=== PATIENT | female | born 1970 | race Caucasian/White ===

== ENCOUNTER 2019-03-28 15:02 | Inpatient (IN) ==
[2019-03-28 15:56] LABS: INFLUENZA A NEGATIVE (NEGATIVE); INFLUENZA B NEGATIVE (NEGATIVE)
[2019-03-28] MEDS ORDERED: NORCO-7.5 PO ONE (16:06)
--- NOTE | 2019-03-28 16:11 | PROVIDER DOCUMENTATION ---
HPI-General Adult - General Chief Complaint: Cough Stated Complaint: COUGH / BACK PAIN Time Seen by Provider: 03/28/19 15:48 Source: patient Allergies/Adverse Reactions: Patient Allergies Allergy/AdvReac Type Severity Reaction Status Date / Time methocarbamol [From Robaxin] Allergy Mild NAUSEA/VOMI Verified 12/16/16 14:19 TING Home Medications: Home Medication List Medication Instructions Recorded Confirmed Last Taken Type Albuterol Sulfate Inhaler 2 puff INH Q6H PRN PRN 05/25/16 03/28/19 Unknown History [Ventolin Hfa] Cyclobenzaprine [Flexeril] 10 mg PO TID PRN #10 tablet 05/25/16 03/28/19 Unknown Rx Gabapentin 100 mg PO 3-4XDAY PRN PRN #15 05/25/16 03/28/19 Unknown Rx capsule Mometasone/Formoterol [Dulera 100 2 puff INH BID 05/25/16 03/28/19 05/24/16 20:00 History Mcg/5 Mcg Inhaler] Prednisone 40 mg PO DAILY #10 tablet 05/25/16 03/28/19 Unknown Rx Cyclobenzaprine [Flexeril] 10 mg PO TID #15 tablet 12/16/16 03/28/19 Unknown Rx Naproxen 375 mg PO BID #20 tablet 12/16/16 03/28/19 Unknown Rx - History of Present Illness -Gen Adult Nature of Presenting Problems: 48 yof presents with c/o cough, fever, low back pain and urinary frequency x 1 week. reports she has chronic back pain but cough has exacerbated it. She denies SOB, CP, N/V/D. She is a smoker. Appears in pain but in NAD Location of Pain/Injury: reports: back (lumbar) Pain Radiation: reports: no radiation Quality of Pain: reports: aching Severity: reports: moderate Onset/Duration: reports: 1 week ago Timing: reports: still present Context/Activities at Onset: reports: none Modifying Factors: worse with: coughing Associated Symptoms: reports: back/neck pain, cough Similar Symptoms Previously?: No Review of Systems - Adult - REVIEW OF SYSTEMS - ADULT Constitutional: reports: fever Eyes: reports: no symptoms reported. denies: see HPI, discharge, dry eyes, decreased vision, blurred vision, double vision, eye pain, redness, other Ears, Nose, Mouth & Throat: reports: no symptoms reported. denies: see HPI, ear discharge, ear pain, hearing loss, tinnitus, epistaxis, sinus problem, nose pain, loose teeth, mouth/dental pain, mouth swelling, hoarseness, throat pain, throat swelling, other Cardiovascular: reports: no symptoms reported. denies: see HPI, chest pain, edema, heart murmur, irregular heart rate, orthopnea, palpitations, poor circulation, PND, syncope, other Respiratory: reports: cough Gastrointestinal: reports: no symptoms reported. denies: see HPI, abdominal pain, hematemesis, constipation, diarrhea, difficulty swallowing, frequent heartburn, nausea, poor appetite, rectal bleeding, vomiting, other Genitourinary: reports: frequency. denies: no symptoms reported, see HPI, dysuria, discharge, flank pain, frequent UTI's, hematuria, hesitency, incontinence, urinary retention, urgency, other Musculoskeletal: reports: see HPI, back pain (chronic, reports worse since coughing). denies: no symptoms reported, bone pain, frequent leg cramps, joint pain, joint swelling, muscle aches, muscle weakness, neck pain, other Integumentary: reports: no symptoms reported. denies: see HPI, hives, hair loss, itching, mole changes, nail changes, rash, skin sores/ulcer, skin thickening, other Neurological: reports: no symptoms reported. denies: see HPI, ataxia, dizziness/vertigo, headache/migraines, loss of balance, numbness, paresthesia, seizure, slurred speech, syncope, tremors, other Psychiatric: reports: no symptoms reported. denies: see HPI, anxiety, anti- depressant use, alcohol/drug dependence, depression, emotional problems, insomnia, panic attacks, suicidal thoughts, other Endocrine: reports: no symptoms reported. denies: see HPI, change in skin pigment, excessive sweating, goiter, cold intolerance, heat intolerance, increased hunger, increased thirst, polyuria, other Hematologic/Lymphatic: reports: no symptoms reported. denies: see HPI, blood cl ots, easy bruising, low blood count, lymphedema, prolonged bleeding, swollen lymph nodes, transfusions, other Allergic/Immunologic: reports: no symptoms reported. denies: see HPI, allergic reactions, allergic rhinitis, asthma, eczema, food allergy, frequent infections, hay fever, hives, positive PPD, urticaria, other Past History - Adult - PAST MEDICAL HISTORY-ADULT Review of Records: reports: Nursing Assessment Review, Social history reviewed & non-contributory. Major Childhood Illnesses: reports: denies history. denies: history unknown, Diptheria, Pneumococcal Disease, Polio, Rotavirus, Tetanus, Varicella, Mumps, Rubella, Hepatitis A, Hepatitis B, Hib, Influenza, Measles, Pertussis, other Cardiovascular: reports: denies history. denies: cardiac disease, A-Fib, angina, aortic disease, arrhythmia, blood clots, CAD, congenital heart disease, CHF, HTN, heart valve problem, hyperlipidemia, murmur, IN, PAD, palpitations, pacemaker, pericardial disease, PVD, other Respiratory: reports: asthma. denies: denies history, bronchitis, COPD, cancer, cystic fibrosis, lung disease, pneumonia, sleep apnea, tuberculosis, other Gastrointestinal: reports: denies history. denies: cholelithiasis, cancer, Crohn's, colitis, diverticulosis, GERD, GI bleed, hepatitis, hemorrhoids, inflammatory bowel disease, IBS, liver disease, obstruction, pancreatitis, polyps, ulcer, other Obstetrical/Gynecological: reports: denies history. denies: - spont/elective, ectopic , endometriosis, fibroids, ovarian cysts, PID/STD, uterine/ovarian cancer, other Genitourinary: reports: denies history. denies: cancer, dialysis, ESRD, incontinence, kidney disease, kidney stones, polycystic kidney disease, retention, stenosis/obstruction, chronic UTI's, erectile dysfunction, epididymitis, prostatitis, prostate cancer, STD (male), testicular injury, other Musculoskeletal: reports: chronic pain (back pain). denies: denies history, arthritis, cancer, fibromyalgia, intervertebral disc disease, neck/back injury, other fractures, orthopedic injury, osteoporosis, spinal fracture, other Neurological: reports: denies history. denies: Alzheimer's, cancer/tumor, cognitive dysfunction, CVA, stroke deficits, degenerative disease, dementia, Betty's Disease, headaches/migraines, Muscular Dystrophy, meningitis, Multiple Sclerosis, Parkinson's, past injury, Seizures/Epilepsy, speech difficulty, spinal cord/brain injury, TIA, other Psychiatric: reports: anxiety, psychiatric problems. denies: denies history, bipolar, depression, ptsd, suicide attempt, schizophrenia, other Endocrine/Immune: reports: denies history. denies: adrenal insufficiency, adrenal excess, anemia, bleeding disorder, cancer, Diabetes, Hemophilia, HIV/A IDS, hypoglycemia, immunosuppression, Leukemia, lupus, Lymphoma, Myeloma, pituitary disorder, RA, Sickle Cell disease, thyroid disorder, other Other Conditions: reports: denies history - PRIOR SURGERIES/PROCEDURES Surgical/Procedure History: reports: , tonsillectomy - PRIOR HOSPITALIZATIONS Prior Hospitalizations: reports: none - IMMUNIZATION STATUS Childhood Immunizations: See Nurse Assessment Flu Vaccine: See Nurse Assessment - FAMILY HISTORY Family History: reviewed, not pertinent Physical Exam-General - PHYSICAL EXAM-ADULT Initial Vital Signs Reviewed: Yes - CONSTITUTIONAL General Appearance: alert, no apparent distress. negative: appears well (appears in pain) - EYES Eyes: PERRL/EOMI, pink conjunctivae - HEAD, EARS, NOSE, MOUTH & THROAT HENMT: normocephalic/atraumatic, moist mucous membranes, normal ENT inspection - NECK Neck: non-tender, full range of motion, supple - RESPIRATORY Respiratory: chest non-tender, lungs clear, normal breath sounds, no pleuratic chest pain, no respiratory distress - CARDIOVASCULAR Cardiovascular: normal peripheral pulses, regular rate, rhythm, no edema - GASTROINTESTINAL (ABDOMEN) Abdominal Exam: normal bowel sounds, non tender, soft - LYMPHATIC Lymphatic: no adenopathy - MUSCULOSKELETAL Back Exam: normal inspection, no CVA tenderness, other (paraspinal muscle tenderness) Extremity: normal range of motion, non-tender, no pedal edema. negative: normal gait (in wc to [facility] for exam) Peripheral Pulses: radial (R): 2+, radial (L): 2+ - SKIN Integumentary: normal color, normal turgor, warm/dry - NEUROLOGIC Neurologic: grossly normal - PSYCHIATRIC Psych/Mental Status: normal thought content, oriented x 3 Progress - PLAN OF CARE/RESULTS Progress/Plan/Lab Results: Vital Signs - 8 hr 03/28/19 15:13 Pulse Rate 84 Respiratory Rate 18 Blood Pressure 100/56 O2 Sat by Pulse Oximetry 95 Laboratory Results - last 24 hr 03/28/19 15:32 Influenza A (Rapid) NEGATIVE Influenza B (Rapid) NEGATIVE Orders Category Date Time Status cxr [CHEST-2 VIEWS] [RAD] Stat Exams 03/28/19 15:[address] Stat Lab 03/28/19 15:32 Completed UA NIMS W/REFLEX CULT [URINALYSIS] Stat Lab 03/28/19 16:06 Uncollected URINE DRUG SCREEN PL Stat Lab 03/28/19 16:06 Uncollected Hydrocodone/APAP 7.5 mg/325 mg [[place]-7.5] Med 03/28/19 16:06 Once 1 each PO NOW ONE Result Diagrams: 03/28/19 19:11 03/28/19 19:11 - CONSULTS/PCP/HOSPITALIST Notification #1 *Consult/PCP/Hospitalist*: DR CHERY Time Discussed: 20:20 Consult Disposition: Admit Departure - Departure Date of Disposition Decision: 03/28/19 Time of Disposition Decision: 20:16 DIAGNOSIS: Pneumonia, UTI (urinary tract infection), Sepsis Disposition: ADMITTED INPATIENT 09 Certified Medical Emergency: Emergent Condition: Fair Referrals and Follow-Ups: None,PCP [Primary Care Provider] - - Critical Care Note This patient required my direct & personal management of CC.: No Attestation - Physician/ TERESA Attestation Patient care was provided by Advanced Practice Provider:: Yes Advanced Practice Provider:: Cathy Hernandez Advanced Practice Provider documentation review:: The Mid-level provider documentation, treatment plan and medical decision making was reviewed by the physician who agrees with all treatment and medical decision making by the P. The physician spent face to face time with patient:: No Advanced Practice Provider documentation review:: Supervising physician onsite and consulted in the evaluation and care of this patient. The physician did not have a face to face encounter with the patient.
--- NOTE | 2019-03-28 17:04 | Diag Imaging Result Doc PS360 ---
EXAM: CHEST-2 VIEWS - 03/28/2019 HISTORY: cough TECHNIQUE: Chest two views COMPARISON: 08/11/2011 FINDINGS: Heart size is normal. There is substantial consolidation at the left lingula and at the inferior left lower lobe, consistent with pneumonia. The right lung appears clear. There is a possible tiny left pleural effusion. There is no evidence of pneumothorax. IMPRESSION: Pneumonia at left lingula and left lower lobe. Electronically signed by Cristino Strickland 03/28/2019 5:02 PM
[2019-03-28] MEDS ORDERED: XYLOCAINE-MPF 1% INJ ONE (17:34)
[2019-03-28] MEDS ORDERED: ROCEPHIN IM ONE (17:34)
[2019-03-28 18:47] LABS: URINE SOURCE CLEAN CATCH
[2019-03-28 18:49] LABS: BILIRUBIN URINE NEGATIVE (NEGATIVE); BLOOD URINE TRACE (NEGATIVE); COLOR YELLOW; GLUCOSE URINE NEGATIVE (NEGATIVE); KETONE URINE TRACE mg/dL (NEGATIVE); LEUKOCYTES URINE SMALL (NEGATIVE); NITRITE URINE POSITIVE (NEGATIVE); PROTEIN URINE 50 mg/dL (NEGATIVE); TURBIDITY URINE HAZY (CLEAR); UROBILINOGEN URINE 2 mg/dL (NORMAL)
[2019-03-28 18:51] LABS: UR EPITHELIAL CELLS <10 /HPF (<10); URINE BACTERIA 4+ /HPF; URINE RBC <10 /HPF (<10); URINE WBC 20-40 /HPF (<10)
[2019-03-28 19:00] LABS: UR AMPHETAMINES QUAL PRESUMPTIVE POSITIVE (NONE DETECT); UR BARBITUATES QUAL NONE DETECTED (NONE DETECT); UR BENZODIAZEPIN QUAL NONE DETECTED (NONE DETECT); UR CANNABINOIDS QUAL NONE DETECTED (NONE DETECT); UR COCAINE QUAL NONE DETECTED (NONE DETECT); UR METHADONE QUAL NONE DETECTED (NONE DETECT); UR METHAMPHETAMINE QUAL PRESUMPTIVE POSITIVE (NONE DETECT); UR OPIATES QUAL NONE DETECTED (NONE DETECT); UR OXYCODONE QUAL NONE DETECTED (NONE DETECT); UR PCP QUAL NONE DETECTED (NONE DETECT); UR PROPOXYPHENE QUAL NONE DETECTED (NONE DETECT); UR TCA QUAL NONE DETECTED (NONE DETECT)
[2019-03-28 19:31] LABS: BASO# 0.05 X1000 (0.0-0.2); BASO% 0.3 % (0.0-0.8); EOS# 0.06 X1000 (0.0-0.7); EOS% 0.4 % (0.0-10.0); HEMATOCRIT 31.5 % (37.0-47.0); HEMOGLOBIN 10.1 g/dL (12.0-16.0); IMM GRAN# 0.14 X1000 (0.0-0.04); IMM GRAN% 0.8 % (0.0-0.5); LYMPH# 0.99 X1000 (1.2-3.4); LYMPH% 5.9 % (20.5-51.1); MCH 30.1 PG (27-31); MCHC 32.1 g/dL (33-37); MONO# 1.33 X1000 (0.11-0.59); MONO% 7.9 % (1.7-9.3); MPV 8.2 FL (7.4-10.4); NEUT# 14.21 X1000 (1.4-6.5); NEUT% 84.7 % (42.2-75.2); PLT 747 X1000 (130-400); RBC 3.35 XMIL (4.2-5.4); RDW 12.3 % (11.5-14.5); WBC 16.78 X1000 (4.8-10.8)
[2019-03-28] MEDS ORDERED: LEVAQUIN 750 MG/D5W 750 MG/150 ML IVPB IV ONE (19:37)
[2019-03-28] MEDS ORDERED: NS 1,000 ML IV ONE ×4 (19:43→23:37)
[2019-03-28 19:52] LABS: AGAP 10; ALBUMIN 2.9 g/dL (3.5-5.0); ALKALINE PHOSPHATASE 103 U/L (32-104); BUN 7 mg/dL (8-22); CALCIUM 8.6 mg/dL (8.8-10.2); CHLORIDE 97 mmol/L (98-107); COSMO 263; CREATININE 0.6 mg/dL (0.5-0.9); ESTIMATED GFR > 60; GLUCOSE 105 mg/dL (70-104); GOT 18 U/L (10-30); GPT 25 U/L (10-36); POTASSIUM 4.2 mmol/L (3.5-5.1); SODIUM 132 mmol/L (136-145); TCO2 25 mmol/L (25-35); TOTAL PROTEIN 7.3 g/dL (6.3-8.3)
[2019-03-28 19:58] LABS: BLOOD TYPE ARTERIAL; HCO3-(ACT) 26.5 mmoll (20.0-26.0); METHB 1.3 % (0.0-1.5); O2(CT) 14.1 mL/dL (15.0-23.0); PCO2(98.6) 31 mmHg (35-45); PO2(98.6) 78 mmHg (60-100); SAMPLE BLOOD; SAO2 98.4 % (95.0-100.0); THB 10.5 g/dL (11.5-17.4); pH(98.6) 7.51 (7.35-7.45)
[2019-03-28 20:00] LABS: ALLEN TEST NO; MODALITY ROOM AIR
[2019-03-28 20:07] LABS: INR 1.05; PROTIME 14.2 Seconds (11.0-16.0)
[2019-03-28] MEDS ORDERED: TYLENOL PO PRN (20:20)
[2019-03-28] MEDS ORDERED: NORCO-5 PO PRN (20:24)
--- NOTE | 2019-03-28 20:24 | Diag Imaging Result Doc PS360 ---
EXAM: CHEST-1 VIEW HISTORY: SEPSIS PROT TECHNIQUE: Single view COMPARISON: 4:58 PM FINDINGS: No interval change. IMPRESSION: Left lingular and lower lobe pneumonia. Electronically signed by Sami Chris 03/28/2019 8:22 PM
[2019-03-28] MEDS ORDERED: LEVOPHED 8 MG in D5 1/2 NS 250 ML IV SCH (23:45)
[2019-03-29] MEDS ORDERED: NICODERM PATCH TD PRN (06:34)
[2019-03-29] MEDS ORDERED: TYLENOL PO PRN (06:34)
[2019-03-29] MEDS ORDERED: ZOFRAN IV PRN (06:34)
[2019-03-29] MEDS: NS 1,000 ML IV SCH ×2 (07:12→18:04)
[2019-03-29] MEDS: NORCO-5 PO PRN ×2 (07:18→18:24)
[2019-03-29 07:29] LABS: BASO# 0.04 X1000 (0.0-0.2); BASO% 0.3 % (0.0-0.8); EOS# 0.07 X1000 (0.0-0.7); EOS% 0.5 % (0.0-10.0); HEMATOCRIT 29.1 % (37.0-47.0); HEMOGLOBIN 9.2 g/dL (12.0-16.0); IMM GRAN# 0.13 X1000 (0.0-0.04); IMM GRAN% 0.9 % (0.0-0.5); LYMPH# 1.15 X1000 (1.2-3.4); LYMPH% 7.9 % (20.5-51.1); MCH 30.2 PG (27-31); MCHC 31.6 g/dL (33-37); MCV 95.4 FL (81-99); MONO# 1.26 X1000 (0.11-0.59); MONO% 8.6 % (1.7-9.3); MPV 8.3 FL (7.4-10.4); NEUT# 11.99 X1000 (1.4-6.5); NEUT% 81.8 % (42.2-75.2); PLT 684 X1000 (130-400); RBC 3.05 XMIL (4.2-5.4); RDW 12.5 % (11.5-14.5); WBC 14.64 X1000 (4.8-10.8)
--- NOTE | 2019-03-29 07:59 | HISTORY AND PHYSICAL ---
PRIMARY CARE PROVIDER: The patient does not have a primary care provider. DATE AND TIME: 03/29/2019 at 0500. CHIEF COMPLAINT: Cough. HISTORY OF PRESENT ILLNESS: Ms. Ware is a 48-year-old female, who reports that for a period of 2 weeks now that she has had progressively worsening symptoms of sinus congestion, drainage, productive cough with greenish yellow sputum, fever, body aches and chills, as well as a headache. She denies being around anyone with influenza. They do report that her granddaughter did have pneumonia, and she had been around her. She denies any recent travel or recently traveling out of the country. She also denies any recent diagnosis of pneumonia in the last 3 to 4 months, or being admitted to the hospital within the last 3 to 4 months either. The patient does have some chronic low back pain and states that her low back pain has been worse. The patient states that approximately 2 days ago she did have a coughing spell and, with this coughing spell, her lower back pain did increase. She also reports that at the time she did have a knot/area of swelling that came up on her left lower back. She reports the area is tender to touch. She denies any pain, numbness, tingling or swelling in extremities. She denies any loss of bladder or bowel control. She does have a history of having some reported bulging disk in her lower back and in her cervical area. The patient also has reported urinary frequency and some dysuria as well, though she has no CVA tenderness upon palpation. The patient denies any recent history of a urinary tract infection or taking any recent antibiotics for anything either. She denies any dizziness, chest pain, shortness of breath. The patient states it only hurts her to take a deep breath due to her back pain that she is having. She denies any abdominal pain, any nausea, vomiting or diarrhea. She reports her last bowel movement was a few days ago. She denies any hematochezia or melena. She denies any pain, numbness, tingling or swelling in extremities. Upon evaluation in the ER, she was noted to have some leukocytosis with a white blood cell count of 16,000. She was also noted to be borderline hypotensive with a blood pressure at one point that got as low as 80 systolically, though she did maintain adequate mean arterial pressures. She did receive a total of 2 L normal saline bolus. Since that time, her blood pressures have improved with last reading of 99/57 with a MAP of 70. She is 96% on room air. She was also noted to have nitrite-positive urinary tract infection, and a chest x-ray did show pneumonia at the left lingula and left lower lobe. She was started on antibiotic of Levaquin IV. Blood cultures and urine culture were obtained. She has been transferred to [facility] and was placed in the ICU just given that she did have some mild hypotension. 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 REVIEW OF SYSTEMS: A 14 point review of systems was conducted with the patient. All were negative, except for pertinent positives mentioned in the HPI. PAST MEDICAL HISTORY: 1. Asthma. 2. Reported history of atrial fibrillation, although the patient states she is not taking any medicines for this. 3. Chronic low back pain and neck pain. 4. Migraines. 5. Anemia. 6. Nicotine dependence. PAST SURGICAL HISTORY: 1. x2. 2. Tubal ligation. 3. Tonsillectomy. 4. Reported four back injections for her chronic low back pain. SOCIAL HISTORY: The patient states she is not working at this time. Her was present at bedside during our examination. She is a current every-day smoker and smokes approximately half pack of cigarettes per day and has done so for greater than 30 years. She denies any illicit drug use. Does report occasional alcohol use. FAMILY HISTORY: Positive for a mother having heart disease and COPD. Her father had a history of lung cancer. He was a smoker as well. Her brother has a history of diabetes mellitus. ALLERGIES: Patient reports allergies to Robaxin. HOME MEDICATIONS: Ventolin HFA inhaler 2 puffs inhaled q. 6 hours p.r.n. for wheezing and shortness of breath. DIAGNOSTIC DATA/LABORATORY RESULTS: White blood cell count is 16,780, hemoglobin 10.1, hematocrit 31.5, platelet count is 747. PT is 14.2, INR 1.05, PTT is 42. Sodium 132, potassium 4.2, chloride 97, serum bicarbonate is 25. BUN 7, creatinine 0.6 with a GFR greater than 60. Glucose 105, calcium 8.6, magnesium 1.8. Liver function tests within normal limits. CK 26, troponin less than 0.01. Initial plasma lactate was 0.8 with a repeat of 0.7. Arterial blood gases were obtained on room air with a pH 7.51, pCO2 31, PO2 of 78, HC03 of 26.5 with a base excess of 2, O2 saturation is 98.4. Influenza screen was negative. Urinalysis was obtained via clean catch, was positive for protein, trace ketones, trace blood, nitrite positive, small leukocytes, 20 to 40 white blood cells and 4+ bacteria. Urine drug screen was positive for amphetamines and methamphetamine. Chest x-ray showed a left lingular and lower lobe pneumonia. Pending diagnostic studies at this time are blood culture, sputum culture, urine culture, as well as a lumbar spine CT noncontrast. PHYSICAL EXAMINATION: VITAL SIGNS: Temperature 99.3 degrees, heart rate 83, respirations 25, blood pressure is 99/57 with a MAP of 70, oxygen saturation is 96% on room air. GENERAL: Ms. Ware is a pleasant 48-year-old female. She was resting in the inpatient bed. She was in no acute distress. She was alert and oriented to person, place, time and situation. She is able to answer questions appropriately and follow commands. HEENT: Head is atraumatic, normocephalic. Pupils are equal, round, reactive to light, were 3 mm bilaterally and brisk. Oral mucosa was moist. Oropharynx was clear. NECK: Supple. Trachea midline. CARDIOVASCULAR: Patient has S1, S2 present. No murmurs, gallops, rubs appreciated with a regular rate and rhythm. PULMONARY: Patient has symmetrical chest expansion bilaterally. Lung sounds in bilateral barrios did have some slight rhonchi noted, though she was diminished in bilateral lower lung barrios. She also was a little tachypneic upon examination, though was not in any respiratory distress. She was able to talk in full sentences. ABDOMEN: Soft, nontender, nondistended. Bowel sounds are present, and all 4 quadrants were normoactive. EXTREMITIES: No cyanosis or edema noted. Pulse, motor, and sensory were intact in all extremities. Radial and pedal pulses were 2+ bilaterally. MUSCULOSKELETAL: Upon palpation of the patient's back, she did not have any CVA tenderness noted, though she did have an approximately tennis ball-size hematoma noted to her left lower back just left of the spine/midline. There was no ecchymosis noted to this area. It was slightly the firm upon palpation. The patient reported tenderness and pain with palpation of this area. INTEGUMENTARY: The patient's skin is pink, warm, and dry. NEUROLOGICAL: Patient is alert and oriented to person, place, time and situation. She does move all extremities. There were no focal neurological deficits noted. ASSESSMENT AND PLAN: 1. Community-acquired left lingular and lower lobe pneumonia. Blood culture and sputum culture have been obtained. We have placed the patient with antibiotic coverage of Levaquin 750 mg intravenous every 24 hours. We will implement aggressive pulmonary toilet with incentive spirometry, schedule DuoNeb treatments and frequent encouragement of turn, cough and deep breathing. We have also ordered her something as needed for cough and Mucinex as well. We will monitor her respiratory status closely. 2. Urinary tract infection. We will continue with Levaquin as mentioned above. We have placed orders for urine culture. We will await those results and continue to follow. 3. Nicotine dependence. We did health counselor the patient for several minutes on the importance of smoking cessation. We will continue to do this throughout her admission and upon discharge. We have placed orders for nicotine patch as needed. 4. Low back pain. The patient does have a history of reported bulging disks in her cervical spine and lower back, I believe lumbar spine. She does have chronic low back pain, though reports 2 days ago after a coughing spell she did have worsening pain in her lower back. She does have a hematoma that appeared at this time as well that is painful and tender to touch that is in her left lower back just left of midline. She is not experiencing any neurological deficits at this time. We have placed orders for CT lumbar spine without contrast. We will await those results and continue to follow. 5. Mild hypotension. I believe this may have been secondary to some possible mild fluid volume depletion. Since receiving 2 liters normal saline bolus in the emergency room, her blood pressures have improved. She is maintaining adequate mean arterial pressures. The lowest blood pressure she had documented was 80 systolic, though the mean arterial pressures were in the 80s and 90s during this time. She has not been tachycardic since arrival. 6. Deep vein thrombosis prophylaxis provided with sequential compression devices. The patient has been placed in the ICU for close monitoring given that she was mildly hypotensive. If her blood pressures maintain adequate throughout the morning and early afternoon, she will likely be able to be triaged at the ICU. We will repeat a CBC, CMP this morning. She will be on a regular diet. We will do strict intake and output. Further orders and recommendations pending hospital course, diagnostic studies, and physician evaluation. Dictated by KATIA Lewis for Andrea Phoenix MD cc: Andrea Phoenix MD [facility]
[2019-03-29 08:01] LABS: AGAP 10; ALB/GLOB RATIO 0.6; ALBUMIN 2.4 g/dL (3.5-5.0); ALKALINE PHOSPHATASE 91 U/L (32-104); BUN 5 mg/dL (8-22); CHLORIDE 101 mmol/L (98-107); COSMO 265; CREATININE 0.7 mg/dL (0.5-0.9); ESTIMATED GFR > 60; GLUCOSE 95 mg/dL (70-104); GOT 15 U/L (10-30); GPT 20 U/L (10-36); POTASSIUM 3.7 mmol/L (3.5-5.1); SODIUM 134 mmol/L (136-145); TCO2 23 mmol/L (25-35); TOTAL BILIRUBIN 0.16 mg/dL (0.20-1.00); TOTAL PROTEIN 6.3 g/dL (6.3-8.3)
[2019-03-29] MEDS: PYRIDIUM PO SCH ×3 (08:11→18:03)
[2019-03-29] MEDS: MUCINEX PO SCH ×2 (08:11→21:14)
--- NOTE | 2019-03-29 08:48 | Diag Imaging Result Doc PS360 ---
CT LUMBAR SPINE W/O CONTRAST - 03/29/2019 INDICATION: L lower back pain hematoma just left of midline COMPARISON: None FINDINGS: Alignment is straightened. Vertebral body heights are preserved. There is moderate multilevel degenerative disc disease diffusely with mild narrowing and some osteophytes. No fracture or subluxation. There is a small 2 mm nonobstructing left renal stone. Otherwise soft tissues are clear. At L3-L4 there is a disc bulge and moderate facet hypertrophy. There is mild central canal stenosis. At L4-L5 there is disc bulge. There is significant facet and ligament flavum hypertrophy. There is moderate central canal stenosis. IMPRESSION: 1. Lumbar spondylosis. 2. Tiny nonobstructing left renal stone. This exam was performed using automated exposure control, adjustment of mA or kV according to patient size, and/or use of iterative reconstruction technique Electronically signed by Adelso Herr 03/29/2019 8:46 AM
[2019-03-29 09:02] LABS: ANISOCYTOSIS 1+; EOS 1 % (1-10); LYMPHS 8 % (21-51); MONO 9 % (1-9); SEGS 81 % (42-75)
[2019-03-29 09:03] LABS: HYPOCHROM 1+
[2019-03-29] MEDS: DUONEB (A & A) INH SCH ×4 (10:11→21:04)
--- NOTE | 2019-03-29 13:19 | PROGRESS NOTE ---
DATE: 03/29/2019 SUBJECTIVE: This patient is still lying comfortably in bed. She is complaining of left thoracic pain close to the lower side of the chest, she does have some rhonchi in that area. X-ray showed pneumonia. The patient has been transferred from [facility] due to low blood pressure and actually this patient is septic. I will continue keeping an eye in ICU for a little bit, but probably in the afternoon or during the night, she can be transferred to the floor. She is still on IV fluids. I will stop the levofloxacin and I will put this patient on Zosyn. OBJECTIVE: Vital Signs: The most recent temperature is 99.0 degrees, pulse 74, respiratory rate 124. Blood pressure on the monitor right now 102/64, oxygen saturation 97% on room air. HEENT: Head normocephalic, no trauma. PERRLA. Neck: Supple. No JVD. No masses. Central trachea. Chest: Clear to auscultation. Some rhonchi at the level of the left lower side of the thoracic area, some tenderness to palpation in that area as well. Abdomen: Soft, nontender, nondistended. No hepatosplenomegaly. Extremities: No edema, no clubbing, no cyanosis. Neurological: The patient is awake, alert, and oriented x3. No focal deficits. LABORATORY DATA: WBC is 14.6, hemoglobin 9.2, hematocrit 29.1, platelets 684,000. Sodium 134, potassium 3.7, chloride 101, bicarbonate 23, BUN 5, creatinine 0.7, glucose 95, calcium 8, albumin 2.4. ASSESSMENT AND PLAN: 1. Sepsis due to left lower lobe and left lingular pneumonia. She has also bacteriuria, but she denies any urinary tract infection. Anyway, this patient will be on antibiotics, continue with IV fluids, breathing treatment. 2. Pneumonia at the level of the left lingula and left lower lobe, aware. I have stop the levofloxacin and I put this patient on Zosyn. White blood cell count trending down. We will continue with same treatment. 3. Bacteriuria, as per the patient, asymptomatic. She is getting antibiotics anyway. 4. Positive urine toxicology that showed amphetamines and methamphetamines, aware. This will be discussed with the patient in detail and daily cessation education will be provided once she is feeling better. 5. Normocytic anemia. We will monitor for now. Seems to be stable. 6. Hyponatremia, stable. 7. Low back pain. We did a lumbar spine CT scan that showed lumbar spondylosis and tiny nonobstructing left renal stone, there is a bulge and moderate facet hypertrophy with mild central canal stenosis at the level of the L3-L4, but at the level of the L4-L5, there is a disk bulge but significant facet ligament flavum hypertrophy, there is moderate central canal stenosis, but the patient is basically moving her lower extremities and sensation is intact. Likely she will need to follow up with spine surgery upon discharge. 8. Hypotension, likely due to #1. Continue with IV fluids. 9. Deep vein thrombosis prophylaxis with sequential compression devices. 10. Tobacco abuse. This patient has been highly advised against tobacco use. I will continue with daily cessation education. cc: Joseluis Menard MD
[2019-03-29] MEDS: ZOSYN 3.375 GM in NS 50 ML IV SCH ×2 (13:20→18:03)
[2019-03-29] MEDS: TESSALON PO PRN (18:20)
[2019-03-29] MEDS ORDERED: LEVAQUIN 750 MG/D5W 750 MG/150 ML IVPB IV SCH (20:00)
[2019-03-29] MEDS ORDERED: LEVAQUIN 500 MG/D5W 500 MG/100 ML IVPB IV SCH (20:00)
[2019-03-30] MEDS: ZOSYN 3.375 GM in NS 50 ML IV SCH ×4 (00:52→18:07)
[2019-03-30] MEDS: DUONEB (A & A) INH SCH ×4 (03:39→21:13)
[2019-03-30] MEDS: NORCO-5 PO PRN ×3 (04:36→21:02)
[2019-03-30] MEDS: TESSALON PO PRN ×2 (04:36→21:02)
[2019-03-30] MEDS ORDERED: ATIVAN IV PRN (07:39)
[2019-03-30 07:52] LABS: BASO# 0.03 X1000 (0.0-0.2); BASO% 0.2 % (0.0-0.8); EOS# 0.03 X1000 (0.0-0.7); EOS% 0.2 % (0.0-10.0); HEMATOCRIT 26.7 % (37.0-47.0); HEMOGLOBIN 8.4 g/dL (12.0-16.0); IMM GRAN# 0.09 X1000 (0.0-0.04); IMM GRAN% 0.7 % (0.0-0.5); LYMPH# 0.94 X1000 (1.2-3.4); LYMPH% 7.1 % (20.5-51.1); MCH 29.9 PG (27-31); MCHC 31.5 g/dL (33-37); MONO# 0.68 X1000 (0.11-0.59); MONO% 5.1 % (1.7-9.3); NEUT# 11.48 X1000 (1.4-6.5); NEUT% 86.7 % (42.2-75.2); PLT 649 X1000 (130-400); RBC 2.81 XMIL (4.2-5.4); RDW 12.5 % (11.5-14.5); WBC 13.25 X1000 (4.8-10.8)
[2019-03-30] MEDS: MUCINEX PO SCH ×2 (08:13→21:02)
[2019-03-30] MEDS: PYRIDIUM PO SCH ×3 (08:13→16:55)
--- NOTE | 2019-03-30 08:13 | PROGRESS NOTE ---
DATE: 03/30/2019 SUBJECTIVE: This patient seems to be doing better. She is still complaining of some shortness of breath and left thoracic pain and back pain, she just received some pain medication and she is feeling sleepy, but the patient is stable to be transferred to the floor. OBJECTIVE: Vital Signs: Temperature 98.6 degrees, pulse 86, respiratory rate 22, blood pressure 115/60, oxygen saturation 98 on room air. HEENT: Head normocephalic, no trauma. PERRLA. Neck: Supple. No JVD. No masses. Central trachea. Chest: Clear to auscultation. Some rhonchi at the level of the left lower thoracic area, some tenderness to palpation in that area as well. Abdomen: Soft, slightly distended but positive bowel sounds. Extremities: No edema, no clubbing, no cyanosis. Neurologic: Patient is sleepy but arousable. She is oriented x3. She is following commands. No focal deficits. LABORATORY: Pending lab work at this moment. We will check it later. ASSESSMENT AND PLAN: 1. Sepsis due to left lower lobe and left lingular pneumonia, she also has bacteriuria but she denies any urinary symptoms. We will continue with Zosyn, IV fluids and breathing treatment. 2. Pneumonia at the level of the left lingula and left lower lobe, aware. I will continue with Zosyn, we will continue with the same management for now pending lab work. 3. Bacteriuria, asymptomatic. 4. Positive urine toxicology that showed amphetamine and methamphetamine, aware. This patient has been advised against drug use. I will continue with daily cessation education. 5. Normocytic anemia. We will monitor for now. She seems to be stable. 6. Hyponatremia, pending lab work. 7. Low back pain, seems to be chronic. We did a CT-spine of the lumbar area that showed lumbar spondylosis with tiny nonobstructing left renal stone, there is a bulge and moderate facet hypertrophy with mild central canal stenosis at the level of the L3-L4, but at the level of the L4-L5, there is a disk bulge but significant facet ligament flavum hypertrophy. There is moderate central canal stenosis, but the patient is basically moving her lower extremities and the sensation is intact, no neurological deficit. She will need to follow up with a spine surgeon upon discharge. 8. Hypotension, likely due to #1. Continue with IV fluids. She seems to be stable. 9. Deep vein thrombosis prophylaxis with sequential compression devices. 10. Gastrointestinal prophylaxis. Continue with the same management. 11. Tobacco abuse. This patient has been highly advised against tobacco use. I will continue with daily cessation education. cc: Joseluis Menard MD
[2019-03-30] MEDS: NS 1,000 ML IV SCH ×2 (08:14→22:10)
[2019-03-30 08:20] LABS: AGAP 10; ALB/GLOB RATIO 0.5; ALBUMIN 2.1 g/dL (3.5-5.0); ALKALINE PHOSPHATASE 83 U/L (32-104); BUN 6 mg/dL (8-22); CHLORIDE 105 mmol/L (98-107); COSMO 275; CREATININE 0.7 mg/dL (0.5-0.9); ESTIMATED GFR > 60; GLUCOSE 102 mg/dL (70-104); GOT 15 U/L (10-30); GPT 19 U/L (10-36); POTASSIUM 4.1 mmol/L (3.5-5.1); SODIUM 139 mmol/L (136-145); TCO2 24 mmol/L (25-35); TOTAL BILIRUBIN 0.19 mg/dL (0.20-1.00); TOTAL PROTEIN 6.2 g/dL (6.3-8.3)
[2019-03-31] MEDS: ZOSYN 3.375 GM in NS 50 ML IV SCH ×4 (01:21→18:34)
[2019-03-31] MEDS: NORCO-5 PO PRN ×3 (03:07→18:33)
[2019-03-31] MEDS: TESSALON PO PRN (03:08)
[2019-03-31] MEDS: DUONEB (A & A) INH SCH ×4 (03:38→21:55)
[2019-03-31 06:21] LABS: AGAP 11; ALB/GLOB RATIO 0.6; ALBUMIN 2.4 g/dL (3.5-5.0); ALKALINE PHOSPHATASE 85 U/L (32-104); BUN 6 mg/dL (8-22); CALCIUM 8.5 mg/dL (8.8-10.2); CHLORIDE 103 mmol/L (98-107); COSMO 274; CREATININE 0.7 mg/dL (0.5-0.9); ESTIMATED GFR > 60; GLUCOSE 103 mg/dL (70-104); GOT 29 U/L (10-30); GPT 32 U/L (10-36); MAGNESIUM 2.1 mg/dL (1.5-2.7); PHOSPHORUS 3.3 mg/dL (2.7-4.5); POTASSIUM 4.2 mmol/L (3.5-5.1); SODIUM 138 mmol/L (136-145); TCO2 24 mmol/L (25-35); TOTAL BILIRUBIN < 0.15 mg/dL (0.20-1.00); TOTAL PROTEIN 6.7 g/dL (6.3-8.3)
[2019-03-31 06:43] LABS: BASO# 0.03 X1000 (0.0-0.2); BASO% 0.2 % (0.0-0.8); EOS# 0.08 X1000 (0.0-0.7); EOS% 0.6 % (0.0-10.0); HEMATOCRIT 27.5 % (37.0-47.0); HEMOGLOBIN 8.7 g/dL (12.0-16.0); IMM GRAN# 0.07 X1000 (0.0-0.04); IMM GRAN% 0.6 % (0.0-0.5); LYMPH# 1.03 X1000 (1.2-3.4); LYMPH% 8.3 % (20.5-51.1); MCHC 31.6 g/dL (33-37); MCV 94.8 FL (81-99); MONO# 0.67 X1000 (0.11-0.59); MONO% 5.4 % (1.7-9.3); MPV 7.7 FL (7.4-10.4); NEUT# 10.49 X1000 (1.4-6.5); NEUT% 84.9 % (42.2-75.2); PLT 747 X1000 (130-400); RDW 12.6 % (11.5-14.5); WBC 12.37 X1000 (4.8-10.8)
--- NOTE | 2019-03-31 07:35 | Diag Imaging Result Doc PS360 ---
CHEST-PORTABLE - 03/31/2019 INDICATION: dyspnea COMPARISON: 03/28/2019 FINDINGS: Stable dense infiltrate in the left lung base. No new infiltrates. Heart size is normal. IMPRESSION: No change from prior. Electronically signed by Adelso Herr 03/31/2019 7:32 AM
[2019-03-31] MEDS: MUCINEX PO SCH ×2 (08:18→20:20)
[2019-03-31] MEDS: NS 1,000 ML IV SCH (11:40)
--- NOTE | 2019-03-31 15:51 | PROGRESS NOTE ---
DATE: 03/31/2019 SUBJECTIVE: Patient resting comfortably. Not in any obvious distress. OBJECTIVE: Vital signs: Temperature 98.5 degrees, pulse 74, respirations 19. Blood pressure is 110/61. Oxygen saturation 98%. HEENT: Atraumatic, normocephalic. Cardiovascular: S1, S2. Respiratory system: Has evidence of good air entry bilaterally. Abdomen: Soft, nontender. No masses felt. Extremities: No evidence of edema. Central nervous system: No obvious focal deficit noted. LABS: WBC is 12.37, hematocrit 27.5 with a platelet count of 747. Sodium is 138, potassium 4.2, chloride is 103, bicarb 24, BUN is 6, creatinine 0.7. Urine culture positive for Escherichia coli. ASSESSMENT AND PLAN: 1. Sepsis secondary to pneumonia/urinary tract infection. Continue antibiotics. 2. Polysubstance abuse. Aware. 3. Anemia. Follow up on hemoglobin and hematocrit. Transfuse packed red blood cells as needed. 4. Low back pain. Optimize pain control. 5. Deep vein thrombosis prophylaxis. Sequential compression devices. 6. Gastrointestinal prophylaxis. Proton pump inhibitor. 7. Tobacco use history. Recommend nicotine patch. cc: Andrea Phoenix MD
[2019-04-01] MEDS: NS 1,000 ML IV SCH ×2 (00:15→13:36)
[2019-04-01] MEDS: ZOSYN 3.375 GM in NS 50 ML IV SCH ×3 (00:15→13:36)
[2019-04-01] MEDS: DUONEB (A & A) INH SCH ×3 (02:45→16:57)
[2019-04-01] MEDS: NORCO-5 PO PRN ×2 (06:21→15:25)
[2019-04-01] MEDS ORDERED: PRILOSEC PO SCH (07:00)
[2019-04-01] MEDS: MUCINEX PO SCH (09:24)
[2019-04-01 11:56] VITALS: BP 99/60
[2019-04-01] MEDS ORDERED: LEVAQUIN PO ONE (14:12)
--- NOTE | 2019-04-02 18:14 | DISCHARGE SUMMARY ---
ADMISSION DATE: 03/28/2019 DISCHARGE DATE: 04/01/2019 ADMISSION DIAGNOSIS: 1. Community-acquired left lower lobe pneumonia. 2. Urinary tract infection. 3. Nicotine dependence. 4. Lower back pain. 5. Mild hypotension. DISCHARGE DIAGNOSIS: 1. Sepsis secondary to pneumonia and urinary tract infection. 2. Polysubstance abuse history. 3. Anemia. 4. Lower back pain. 5. Tobacco abuse. PHYSICIAN CONSULTATIONS: None. SURGERY AND PROCEDURES: None. HOSPITAL COURSE: Ms. Ware is a 48-year-old female presented on 03/28/2019 with complaints of a cough had been going on for at least 2 weeks with increased sinus congestion, drainage and yellow green phlegm, fever, body aches, chills and headache. She was negative for pneumonia. Imaging reveals she had a left lower lobe pneumonia, also in the lingula. She also was positive for urinary tract infection. Apparently she had recently been diagnosed with pneumonia about 3 or 4 months prior to this admission. She also complains of chronic lower back pain that is worse. She did have complaints of dysuria and frequency with urination and she was started on Levaquin. She improved over the next couple days however when she 1st did present she was hypotensive so she was placed in the ICU for closer observation but that quickly resolved with IV fluid hydration. DISCHARGE VITAL SIGNS: Temperature 98.3 degrees, heart rate 69, respiratory 20, blood pressure 99/60, O2 saturation 97% on room air. DISCHARGE LAB DATA: White blood cells 12,000, hemoglobin 8, hematocrit 27, platelet count 747,000. Sodium 138, potassium 4.2, BUN 6, creatinine 0.7, glucose 103, albumin 2.4. Urine drug screen was positive amphetamines and methamphetamines. Urine grew out E coli, ESBL negative and pansensitive. Blood cultures were negative, sputum culture was negative. IMAGINth chest x-ray pneumonia left lingula and left lower lobe, repeat chest x-ray left lingula, left lower lobe pneumonia, lumbar spine CT lumbar spondylosis, tiny nonobstructive left renal stone. Chest x-ray on the no change from prior. No EKG but she had telemetry strips which showed normal sinus rhythm. DISCHARGE MEDICATIONS: 1. Albuterol 2 puffs inhaled every 6 hours p.r.n. 2. Levaquin 750 mg p.o. daily for 5 days. PHYSICIAN FOLLOWUP: None. DISCHARGE DIET: Regular. DISCHARGE ACTIVITY: As tolerated. DISCHARGE INSTRUCTIONS: If your condition changes contact physician and/or return to emergency department. Changes may include but not limited to shortness of breath, increased fatigue, excessive bleeding, unexplained weight loss or gain, unmanageable pain, signs or symptoms of infection. DISCHARGE DISPOSITION: Home. Dictated by KATIA Crowder for Can Thomas MD cc: KATIA Crowder Agree with the above. the following is my own face to face assessment. Patient with UTI and pneumonia, now much improved. lungs CTAB on exam. discharging home on oral levaquin to finish a course of treatment. MTDD
== END 2019-04-01 17:01 | disposition home or self-care (01) ==
LOC: P.ED 15:02 → SUATTDRO 21:53 → P.MEDSURG 21:53 → ICU 03-29 00:40 → 3N 03-31 13:51
PROVIDERS: ATTEND Internal Medicine